=== PATIENT | female | born 1970 ===

== ENCOUNTER 2022-04-01 10:10 | Outpatient (CLI) | payer BC, SELFPAY ==
--- NOTE | ~2022-04-01 | MR_ITS ---
MRI of the lumbar spine Clinical History: Back pain Technique: Axial T2-weighted images, and sagittal T1-weighted, T2-weighted, and T2 fat-sat images wer e acquired. Findings: There is no fracture or subluxation of the lumbar spine. Vertebral bodies maintain normal h eight and alignment. No bone marrow signal abnormality seen. At L1-L2, and L2-L3, there is no disc bulge or herniation. No spinal canal stenosis or neural foramin al narrowing at these levels. There is mild facet arthropathy at these levels. L3-L4, there is minimal disc bulge and facet arthropathy. No definite spinal canal stenosis. Neural f oramina are preserved. At L4-L5, there is mild disc bulge with facet arthropathy. No giovana spinal canal stenosis. Neural for tanvi are preserved. At L5-S1, there is disc bulge, most prominent at the right foraminal to right paracentral/central reg ions. There is mild facet arthropathy. No spinal canal stenosis. There is mild bilateral neural sushila inal compromise. Sacral Tarlov cyst noted. Paravertebral soft tissues are unremarkable. Impression: Mild bilateral neural foraminal compromise at L5-S1. Additional minimal degenerative changes, as above. Reviewed, dictated and finalized at location . [employer] Impression: Mild bilateral neural foraminal compromise at L5-S1. Additional minimal degenerative changes, as above.
== END 2022-04-01 10:11 ==
PROVIDERS: PCP Orthopaedic Surgery; Visit Provider Orthopaedic Surgery
DX: M51.26 Other intervertebral disc displacement, lumbar region (principal)
CPT/HCPCS: 72148